=== PATIENT | male | born 1945 | race Caucasian/White ===

== ENCOUNTER 2017-03-06 23:37 | Observation (INO) | payer OTHER, MEDICARE ==
[~2017-03-06] VITALS: Ht 177.8 cm; Wt 98.5 kg
[~2017-03-06 23:37] MED LIST: ASPIR 8181 M1 PO; CRESTOR40 MG PO; LISINOPRIL20 MG PO; METOPROLOL SUCC25 MG PO; METOPROLOL TART25 MG PO; METRONIDAZOLE500 MG PO; MULTI VITAMIN1 EACH PO; MYSOLINE50 MG PO; PREDNISONE20 MG PO; SLO-NIACIN500 MG PO
[2017-03-07 00:42] LABS: HEMATOCRIT 46.5 % (38.0-50.0); MCHC 32.9 G/DL (30.0-36.0); MCV 88.1 FL (86-99); MEAN PLAT.VOLUME 10.8 uM^3 (9.0-12.4); PLATELET COUNT 172 K/uL (156-360); RBC DIS.WIDTH-CV 13.5 % (11.8-14.6); RBC DIS.WIDTH-SD 43.7 % (39-53); RED BLOOD COUNT 5.28 M/uL (4.00-5.50); WHITE BLOOD COUNT 13.2 K/uL (4.1-10.2)
[2017-03-07 00:55] LABS: CHLORIDE 108 mEq/L (99-109); POTASSIUM 4.3 mEq/L (3.7-5.4); SODIUM 139 mEq/L (136-147)
[2017-03-07 00:56] LABS: GLUCOSE 98 mg/dL (70-99)
[2017-03-07 00:58] LABS: ANION GAP 6 MEQ/L (2-14)
[2017-03-07 01:00] LABS: GFR ESTIMATE (CALCULATED) > 59 mL/min/ (58.99-99999)
[2017-03-07 01:01] LABS: UREA NITROGEN (BUN) 18 mg/dL (9-23)
[2017-03-07 01:02] LABS: TROP-I INTERPRETATION NEGATIVE; TROPONIN-I 0.01 ng/mL (0.0-0.30)
[2017-03-07 02:19] LABS: D-DIMER ELISA < 150.00 ng/mLDDU (<230)
[2017-03-07 06:19] LABS: MCH 28.9 PG (29.0-34.0); MCHC 32.8 G/DL (30.0-36.0); MEAN PLAT.VOLUME 11.1 uM^3 (9.0-12.4); PLATELET COUNT 172 K/uL (156-360); RBC DIS.WIDTH-CV 13.5 % (11.8-14.6); RBC DIS.WIDTH-SD 43.5 % (39-53); RED BLOOD COUNT 5.23 M/uL (4.00-5.50); WHITE BLOOD COUNT 13.8 K/uL (4.1-10.2)
[2017-03-07 06:28] LABS: CHLORIDE 106 mEq/L (99-109); POTASSIUM 4.3 mEq/L (3.7-5.4); SODIUM 137 mEq/L (136-147)
[2017-03-07 06:30] LABS: GLUCOSE 131 mg/dL (70-99)
[2017-03-07 06:32] LABS: ANION GAP 8 MEQ/L (2-14)
[2017-03-07 06:34] LABS: ALKALINE PHOSPHATASE 80 IU/L (3-129); GFR ESTIMATE (CALCULATED) 58 mL/min/ (58.99-99999)
[2017-03-07 06:35] LABS: UREA NITROGEN (BUN) 16 mg/dL (9-23)
[2017-03-07 06:39] LABS: TROP-I INTERPRETATION NEGATIVE; TROPONIN-I 0.02 ng/mL (0.0-0.30)
[2017-03-07 07:02] LABS: HDL CHOLESTEROL 30 MG/DL (Desirable>=40); LDL CHOLESTEROL 71 mg/dL (Desirable<100); NON-HDL CHOLESTEROL 102 mg/dL (Desirable<160); TOTAL CHOLESTEROL 132 mg/dL (Desirable<200); TRIGLYCERIDES 157 MG/DL (Normal: <150)
[2017-03-07] MEDS ORDERED: LATANOPROST2.5 ML LEFT EYE (10:44)
[2017-03-07 12:21] VITALS: BP 129/65
[2017-03-07 13:44] LABS: TROP-I INTERPRETATION NEGATIVE; TROPONIN-I 0.02 ng/mL (0.0-0.30)
[2017-03-07 15:23] VITALS: BP 102/58
[2017-03-07 16:50] LABS: ADD MIUA? NO; BILIRUBIN NEGATIVE; BLOOD NEGATIVE; COLOR YELLOW ((YELLOW)); GLUCOSE (STRIP) NEGATIVE; KETONES NEGATIVE; LEUKOCYTES NEGATIVE; NITRITE NEGATIVE; PROTEIN (STRIP) NEGATIVE; SPECIFIC GRAVITY 1.016 (1.000-1.030); UCUL ADDED? NO; UROBILINOGEN 0.2 MG/DL (0.2-1.0)
[2017-03-07 20:00] VITALS: BP 111/56
[2017-03-08 00:15] VITALS: BP 117/58
[2017-03-08 03:50] VITALS: BP 130/63
[2017-03-08 05:20] LABS: HEMATOCRIT 41.8 % (38.0-50.0); MCH 29.3 PG (29.0-34.0); MCHC 32.5 G/DL (30.0-36.0); MCV 90.1 FL (86-99); MEAN PLAT.VOLUME 11.3 uM^3 (9.0-12.4); PLATELET COUNT 148 K/uL (156-360); RBC DIS.WIDTH-CV 13.9 % (11.8-14.6); RBC DIS.WIDTH-SD 46.4 % (39-53); RED BLOOD COUNT 4.64 M/uL (4.00-5.50); WHITE BLOOD COUNT 10.4 K/uL (4.1-10.2)
[2017-03-08 05:44] LABS: ANION GAP 6 MEQ/L (2-14); CHLORIDE 106 MEQ/L (99-109); GFR ESTIMATE (CALCULATED) 58 mL/min/ (58.99-99999); POTASSIUM 4.4 MEQ/L (3.7-5.4); SAMPLE HEMOLYSIS CHECK 0; SAMPLE ICTERIC CHECK 0; SAMPLE LIPEMIA CHECK 0; SODIUM 139 MEQ/L (136-147); UREA NITROGEN (BUN) 23 mg/dL (9-23)
[2017-03-08 05:45] LABS: GLUCOSE 87 mg/dL (70-99)
== END 2017-03-08 16:15 | disposition home or self-care (01) ==
LOC: EME 23:37 → 5WEST 03-07 03:55 → EDOF 03-07 03:55 → ENRESERV 03-07 04:02 → 5WEST 03-07 11:45
PROVIDERS: Emergency Medicine; Internal Medicine; Physician Assistant
DX: R07.9 Chest pain, unspecified (principal); G45.8 Other transient cerebral ischemic attacks and related syndromes; K21.9 Gastro-esophageal reflux disease without esophagitis; E78.5 Hyperlipidemia, unspecified; I10 Essential (primary) hypertension; I25.10 Atherosclerotic heart disease of native coronary artery without angina pectoris; L97.921 Non-pressure chronic ulcer of unspecified part of left lower leg limited to breakdown of skin; D72.829 Elevated white blood cell count, unspecified; Z95.1 Presence of aortocoronary bypass graft; Z95.5 Presence of coronary angioplasty implant and graft; I25.2 Old myocardial infarction; K44.9 Diaphragmatic hernia without obstruction or gangrene; G25.0 Essential tremor; Z87.11 Personal history of peptic ulcer disease; I73.9 Peripheral vascular disease, unspecified; Z79.82 Long term (current) use of aspirin; Z86.19 Personal history of other infectious and parasitic diseases; Z82.0 Family history of epilepsy and other diseases of the nervous system; Z87.891 Personal history of nicotine dependence
CPT/HCPCS: 71020; 78452; 80048; 80053; 80061; 81003; 83880; 84484; 85027; 85379; 87040; 93005; 93017; 93926; A9500; G0378; J1650; J2405; J2785; J7030

== ENCOUNTER 2017-06-26 11:59 | Emergency (ER) | payer OTHER, MEDICARE ==
[~2017-06-26] VITALS: Ht 177.8 cm; Wt 92.1 kg
[~2017-06-26 11:59] MED LIST changes: +LATANOPROST2.5 ML LEFT EYE
[2017-06-26 12:35] LABS: HEMATOCRIT 48.7 % (38.0-50.0); HEMOGLOBIN 16.1 G/DL (12.5-16.6); MCH 28.9 PG (29.0-34.0); MCHC 33.1 G/DL (30.0-36.0); MCV 87.4 FL (86-99); PLATELET COUNT 256 K/uL (156-360); RBC DIS.WIDTH-CV 13.8 % (11.8-14.6); RBC DIS.WIDTH-SD 44.2 % (39-53); RED BLOOD COUNT 5.57 M/uL (4.00-5.50); WHITE BLOOD COUNT 15.6 K/uL (4.1-10.2)
[2017-06-26 12:49] LABS: CHLORIDE 102 mEq/L (99-109); POTASSIUM 5.6 mEq/L (3.7-5.4); SODIUM 136 mEq/L (136-147)
[2017-06-26 12:50] LABS: GLUCOSE 96 mg/dL (70-99)
[2017-06-26 12:54] LABS: CREATININE 1.5 mg/dL (0.6-1.3); GFR ESTIMATE (CALCULATED) 49 mL/min/ (58.99-99999)
[2017-06-26 12:55] LABS: UREA NITROGEN (BUN) 26 mg/dL (9-23)
[2017-06-26 13:01] LABS: TROP-I INTERPRETATION NEGATIVE; TROPONIN-I 0.01 ng/mL (0.0-0.30)
[2017-06-26] MEDS ORDERED: PERCOCET 5/31 TABLET PO (16:36)
[2017-06-26 17:02] VITALS: BP 114/69
== END 2017-06-26 17:09 | disposition home or self-care (01) ==
LOC: EME 11:59
PROVIDERS: Nurse Practitioner Family
DX: S81.802A Unspecified open wound, left lower leg, initial encounter (principal); R55 Syncope and collapse; Z98.890 Other specified postprocedural states; I44.0 Atrioventricular block, first degree; I10 Essential (primary) hypertension; E78.5 Hyperlipidemia, unspecified; I25.2 Old myocardial infarction; Z95.1 Presence of aortocoronary bypass graft; Z87.891 Personal history of nicotine dependence; Z79.82 Long term (current) use of aspirin
CPT/HCPCS: 71046; 73630; 80048; 84484; 85027; 93005; 99281; 99284